=== PATIENT | female | born 2000 | race African-American/Black ===

== ENCOUNTER 2022-06-28 01:01 | Emergency (ER) | payer OTHER ==
[~2022-06-28] VITALS: Ht 152.4 cm; Wt 129.3 kg
[2022-06-28] MEDS ORDERED: PROCHLORPERAZINE EDISYLATE 10 MG/2 ML VIAL IV ONE (02:15)
[2022-06-28] MEDS ORDERED: PROCHLORPERAZINE EDISYLATE 10 MG/2 ML VIAL ONE (02:33)
[2022-06-28 02:51] LABS: HEMATOCRIT 38.3 % (31.2-41.9); MEAN CORPUSCULAR HEMOGLOBIN 28.8 uug (24.7-32.8); MEAN CORPUSCULAR VOLUME 85.3 fL (75.5-95.3); PLATELET COUNT (AUTO) 267 K/uL (179-408)
[2022-06-28 03:01] LABS: ALANINE AMINOTRANSFERASE 10 U/L (14-59); ALKALINE PHOSPHATASE 65 U/L (50-136); ASPARTATE AMINOTRANSFERASE 12 U/L (15-37); BILIRUBIN,DIRECT 0.1 mg/dL (0.0-0.2); BILIRUBIN,TOTAL 0.5 mg/dL (0.2-1.0); CARBON DIOXIDE 29 mmol/L (21-32); CHLORIDE 104 mmol/L (98-107); CREATININE 1.1 mg/dL (0.6-1.3); GLUCOSE 210 mg/dL (74-106); LIPASE 178 U/L (73-393); UREA NITROGEN, BLOOD 11 mg/dL (7-18)
--- NOTE | 2022-06-28 03:32 | NUR ---
Patient sleeping on gurny with no distress noted.
[2022-06-28] MEDS ORDERED: PROC10TA29 PO (04:44)
--- NOTE | 2022-06-28 04:53 | NUR ---
IV removed. Catheter intact and site benign. Pressure and 4x4 gauze applied to site. No bleeding noted.
[2022-06-28 04:54] VITALS: BP 125/74
== END 2022-06-28 04:55 | disposition home or self-care (01) ==
LOC: ER 01:13
DX: R11.2 Nausea with vomiting, unspecified (principal); E11.9 Type 2 diabetes mellitus without complications; E66.01 Morbid (severe) obesity due to excess calories; Z68.43 Body mass index [BMI] 50.0-59.9, adult; J45.909 Unspecified asthma, uncomplicated; R07.89 Other chest pain
CPT/HCPCS: 99285; 96374; 71045; 80076; 80048; 83690; 83735; 85025; 84484; 36415; 93005; J0780; A4663